=== PATIENT | female | born 1980 | race Caucasian/White ===

== ENCOUNTER 2019-05-19 13:39 | Outpatient (CLI) | payer BC, SELFPAY ==
[2019-05-19 14:45] LABS: Thyroid Stimulating Hormone 0.38 uIU/mL (0.36-3.74)
== END 2019-05-19 13:40 | disposition home or self-care (01) ==
PROVIDERS: PCP Nurse Practitioner Family; Visit Provider Nurse Practitioner Family
DX: E03.9 Hypothyroidism, unspecified (principal)
CPT/HCPCS: 36415; 84443

== ENCOUNTER 2019-11-09 11:17 | Outpatient (CLI) | payer BC, SELFPAY ==
[2019-11-09 11:34] LABS: Hematocrit 43.8 % (35.0-49.0); Hemoglobin 14.4 g/dL (12.0-15.0); Mean Corpuscular HGB Conc 32.9 g/dL (32.0-36.0); Mean Corpuscular Hemoglobin 30.6 pg (27.0-31.0); Mean Corpuscular Volume 93.2 fL (78.0-102.0); Platelet Count Result 228 K/mm3 (150-420); Red Cell Distribution Width 11.9 % (11.6-14.4); White Blood Count 8.5 K/mm3 (4.8-10.8)
[2019-11-09 12:38] LABS: Anion Gap 7 mmol/L (8-16); Blood Urea Nitrogen 11 mg/dL (7-18); Calcium 8.7 mg/dL (8.5-10.1); Carbon Dioxide 30 mmol/L (21-32); Chloride 103 mmol/L (98-108); Estimated Glomerular Filt Rate > 60; Glucose 98 mg/dL (70-99); Osmolality Calculated 289 mOsm/kg (285-295); Potassium 4.6 mmol/L (3.5-5.1); Sodium 140 mmol/L (136-145); Thyroid Stimulating Hormone 0.36 uIU/mL (0.36-3.74)
== END 2019-11-09 11:18 | disposition home or self-care (01) ==
LOC: CHSLAB 11:19
PROVIDERS: PCP Nurse Practitioner Family; Visit Provider Nurse Practitioner Family
DX: E03.9 Hypothyroidism, unspecified (principal); F41.1 Generalized anxiety disorder
CPT/HCPCS: 36415; 80048; 84443; 85027

== ENCOUNTER 2019-11-15 15:03 | Outpatient (CLI) | payer BC, SELFPAY ==
--- NOTE | ~2019-11-15 | MM_ITS ---
EXAMINATION: MM screening grey BI w rafia HISTORY: Screening TECHNIQUE: Craniocaudal and mediolateral oblique 3-D tomosynthesis images were obtained and synthetic 2-D images were generated. CAD analysis was submitted and interpreted. COMPARISON: No prior mammogram is available for comparison at this institution. BREAST PARENCHYMAL COMPOSITION: There are scattered areas of fibroglandular density. FINDINGS: There is no evidence of suspicious mass, calcification, or architectural distortion to sugg est malignancy in either breast. There has been no suspicious interval change. IMPRESSION: 1. No mammographic evidence of malignancy. 2. Recommend routine screening mammography in one year. BI-RADS Category 1: Negative Reviewed, dictated and finalized at location A.
== END 2019-11-15 15:04 | disposition home or self-care (01) ==
LOC: CHSIMG 15:04
PROVIDERS: PCP Nurse Practitioner Family; Visit Provider Obstetrics & Gynecology
DX: Z12.31 Encounter for screening mammogram for malignant neoplasm of breast (principal)
CPT/HCPCS: 77063; 77067

== ENCOUNTER 2020-08-15 10:04 | Outpatient (CLI) | payer BC, SELFPAY ==
[2020-08-15 10:55] LABS: Basophils Absolute Auto 0.04 K/mm3 (0.00-0.10); Basophils Percent Auto 0.5 % (0.0-1.0); Eosinophils Absolute Auto 0.07 K/mm3 (0.02-0.50); Eosinophils Percent Auto 0.9 % (1.0-6.0); Hematocrit 42.6 % (35.0-49.0); Hemoglobin 14.2 g/dL (12.0-15.0); Immature Granulocyte Absolute 0.03 K/mm3 (0.00-0.00); Immature Granulocyte Percent A 0.4 % (0.0-0.0); Lymphocytes Absolute Auto 2.51 K/mm3 (1.10-4.50); Lymphocytes Percent Auto 32.7 % (18.0-42.0); Mean Corpuscular HGB Conc 33.3 g/dL (32.0-36.0); Mean Corpuscular Hemoglobin 30.6 pg (27.0-31.0); Mean Corpuscular Volume 91.8 fL (78.0-102.0); Mean Platelet Volume 9.1 fl (9.2-11.8); Monocytes Absolute Auto 0.58 K/mm3 (0.10-0.90); Monocytes Percent Auto 7.6 % (2.0-11.0); Neutrophils Absolute Auto 4.4 K/mm3 (1.7-7.2); Neutrophils Percent Auto 57.9 % (50.0-70.0); Platelet Count Result 248 K/mm3 (150-420); Red Blood Count 4.64 M/mm3 (4.20-5.40); Red Cell Distribution Width 12.2 % (11.6-14.4); White Blood Count 7.7 K/mm3 (4.8-10.8)
[2020-08-15 10:58] LABS: Alanine Aminotransferase 26 U/L (14-59); Albumin Level 3.7 g/dL (3.4-5.0); Alkaline Phosphatase 105 U/L (46-116); Anion Gap 10 mmol/L (8-16); Aspartate Amino Transferase 14 U/L (15-37); Bilirubin,Total 0.5 mg/dL (0.00-1.00); Blood Urea Nitrogen 10 mg/dL (7-18); Calcium 8.9 mg/dL (8.5-10.1); Carbon Dioxide 28 mmol/L (21-32); Chloride 101 mmol/L (98-108); Estimated Glomerular Filt Rate > 60; Glucose 124 mg/dL (70-99); Osmolality Calculated 288 mOsm/kg (285-295); Potassium 4.3 mmol/L (3.5-5.1); Sodium 139 mmol/L (136-145); Total Protein 6.8 g/dL (6.4-8.2)
[2020-08-15 11:22] LABS: Thyroid Stimulating Hormone Reflex 0.19 u/IU/mL (0.36-3.74)
[2020-08-15 11:23] LABS: Free T4 Free Thyroxine Reflex 1.43 ng/dL (0.76-1.46)
== END 2020-08-15 10:05 | disposition home or self-care (01) ==
LOC: CHSLAB 10:06
PROVIDERS: PCP Family Medicine; Visit Provider Family Medicine
DX: E03.9 Hypothyroidism, unspecified (principal)
CPT/HCPCS: 36415; 80053; 84439; 84443; 85025

== ENCOUNTER → 2020-11-09 10:49 | Outpatient (CLI) | payer BC, SELFPAY ==
--- NOTE | ~2020-11-09 | MR_ITS ---
EXAMINATION: MR knee RT wo con DATE: 11/09/2020 12:24 INDICATION: Medial right knee pain TECHNIQUE: Magnetic resonance imaging (MRI) of the right knee was performed without intravenous contr ast. Sequences included coronal PD-weighted FSE, coronal PD-weighted FS FSE, sagittal T2-weighted FS E, sagittal PD-weighted FS FSE and axial PD weighted fat saturated FSE. COMPARISON: None. FINDINGS: Medial compartment: Medial meniscus is normal. Small focus of partial-thickness chondral fissuring without degenerative s ubchondral changes along the lateral margin of the anterior weightbearing medial femoral condyle. Rem aining cartilage is normal. Lateral compartment: Lateral meniscus is normal. Mild partial-thickness chondral fissuring along the posterior medial aspe ct of the lateral tibial plateau. Patellofemoral compartment: Deep chondral ulceration/fissuring extending across the patellar apical ridge and medial facet juncti on of the mid to lower thirds of the couple tiny foci of increased subarticular signal. Additional sm all region of partial-thickness chondral fissuring with minimal underlying cortical irregularity at t he inferior aspect of the medial trochlea. Ligaments and tendons: Complete anterior cruciate ligament tear. The posterior cruciate ligament is normal. The medial colla teral ligament and fibular collateral ligament complex are normal. The extensor mechanism is normal. The visualized medial and lateral hamstring tendons as well as the iliotibial band are normal. Fluid: Small to moderate-sized right knee joint effusion at the suprapatellar pouch. No loose osteochondral bodies identified. Osseous/other: Mild marrow edema without associated fracture line extending along the posterior rim of the lateral p atellar facet suggesting bone contusion related to anterior tibial subluxation injury noted bone cont usion, fracture or pathologic marrow replacing process. IMPRESSION: 1. Complete tear of the anterior cruciate ligament with mild bone contusion along the posterior rim o f the lateral tibial plateau likely related to anterior tibial subluxation. 2. Mild tricompartmental osteoarthritis with small regions of moderate grade chondromalacia in the me dial and lateral compartments and moderate and high-grade chondromalacia in the patellofemoral compar tment. 3. Small to moderate-sized right knee joint effusion. Reviewed, dictated and finalized at location A. IMPRESSION: 1. Complete tear of the anterior cruciate ligament with mild bone contusion karlee ng the posterior rim of the lateral tibial plateau likely related to anterior t ibial subluxation. 2. Mild tricompartmental osteoarthritis with small regions of moderate grade ch ondromalacia in the medial and lateral compartments and moderate and high-grade chondromalacia in the patellofemoral compartment. 3. Small to moderate-sized right knee joint effusion.
== END ==
PROVIDERS: Visit Provider Orthopaedic Surgery
DX: M25.461 Effusion, right knee (principal); M17.11 Unilateral primary osteoarthritis, right knee; S83.511A Sprain of anterior cruciate ligament of right knee, initial encounter; X58.XXXA Exposure to other specified factors, initial encounter
CPT/HCPCS: 73721

== ENCOUNTER 2020-11-19 07:58 | Outpatient (CLI) | payer SELFPAY ==
--- NOTE | ~2020-11-19 | MM_ITS ---
EXAMINATION: MM screening grey BI w rafia HISTORY: Screening mammogram TECHNIQUE: Craniocaudal and mediolateral oblique 3-D tomosynthesis images were obtained and synthetic 2-D images were generated. CAD analysis was submitted and interpreted. COMPARISON: 11/15/2019 bilateral digital screening mammogram BREAST PARENCHYMAL COMPOSITION: There are scattered areas of fibroglandular density. FINDINGS: There is no evidence of suspicious mass, calcification, or architectural distortion to sugg est malignancy in either breast. There has been no suspicious interval change. IMPRESSION: 1. No mammographic evidence of malignancy. 2. Recommend routine screening mammography in one year. BI-RADS Category 1: Negative Reviewed, dictated and finalized at location A.
== END 2020-11-19 07:59 | disposition home or self-care (01) ==
LOC: CHSIMG 07:59
PROVIDERS: PCP Family Medicine; Visit Provider Obstetrics & Gynecology
DX: Z12.31 Encounter for screening mammogram for malignant neoplasm of breast (principal)
CPT/HCPCS: 77063; 77067

== ENCOUNTER 2020-11-20 15:45 | Outpatient (RCR) | payer BC, OTHER, SELFPAY ==
--- NOTE | 2020-12-10 10:22 | PTOPEVAL ---
Thank you for referring Stephanie Aviles to [facility].? The patient is scheduled to be seen for therapy? ____x/week for ___ weeks. Please review, sign, date and return this plan of care YOON. I agree with and certify that the following plan of care is medically necessary. Referring Physician Date Admitting Provider: Attending Provider: Harish Donohue MD Referring Provider: *PT Outpatient Evaluation Start: 11/20/20 16:03 Freq: Status: Active Protocol: Document 11/20/20 16:00 [facility] (Rec: 11/20/20 17:53 [facility] [id number]) Therapy Assessment Status Assessment Status Assessment Status Evaluation Evaluation Information Problem Diagnosis R knee pain, ACL tear, tricompartmental arthritis Onset 10/20/20 Additional Evaluation Detail LEFS = 61% functionally declined Subjective Information patient reports she was Query Text:As Reported By Patient/ playing family baseball game Family and twisted her knee both in the field and batting. she reports she felt and heard a pop in the R knee. she reports she had an MRI of the R knee that reveals a complete tear of the ACL. she reports her R knee feels unsteady with standing, walking, and stair ambulation. she reports sitting will cause the knee to lock up. Prior Level of Function Comments Additional Prior Level of Function prior to injury, no issues Comments with the R knee. Pain Assessment Timing of Pain Assessment Timing of Pain Assessment Assessment Pain Scale Pain Scale Used Numeric (1 - 10) Self Report Pain Assessment Right Knee(s) Reported Pain Level 0 Greatest Pain Intensity 10 Pain Score Pain Score 0: Self Report Interventions Used Interventions Used By Clinicians Activity or ADL's,Compression Pump,Education,Exercise,Ice, Rest Lower Extremity Range of Motion Knee Range of Motion Right Knee Flexion Range of Motion - Active 112 Knee Extension Range of Motion - Active -10 Query Text: Left Knee Flexion Range of Motion - Active 130 Knee Extension Range of Motion - Active 0 Query Text: Lower Extremity Muscle Strength Testing Hip Strength Right Hip Flexion Strength 3- Fair - Hip Strength Comments extension lag noted with SLR Left Hip Flexion Strength 4+
--- NOTE | 2020-12-16 16:31 | PTOPEVAL ---
Thank you for referring Stephanie Aviles to [facility] [place] The patient is scheduled to be seen for therapy? ____x/week for ___ weeks. Please review, sign, date and return this plan of care YOON. I agree with and certify that the following plan of care is medically necessary. Referring Physician Date Admitting Provider: Attending Provider: Harish Donohue MD Referring Provider: *PT Outpatient Evaluation Start: 11/20/20 16:03 Freq: Status: Active Protocol: Document 12/16/20 15:38 [facility] (Rec: 12/16/20 16:29 [facility] [id number]) Therapy Assessment Status Assessment Status Assessment Status Discharge Evaluation Information Problem Diagnosis R knee pain, ACL tear, tricomparmental arthritis Subjective Information Patient reports that her Query Text:As Reported By Patient/ extension is better but she Family still has difficulty with walking, steps, and squatting. She states she goes to the doctor tomorrow to decide what the next steps are. She states she still has the locking up sensation. Pain Assessment Timing of Pain Assessment Timing of Pain Assessment Assessment Pain Scale Pain Scale Used Numeric (1 - 10) Self Report Pain Assessment Right Knee(s) Reported Pain Level 3 Greatest Pain Intensity 10 Pain Score Pain Score 3: Self Report Interventions Used Interventions Used By Clinicians Activity or ADL's,Exercise Lower Extremity Range of Motion Knee Range of Motion Right Knee Flexion Range of Motion - Active 119 Knee Extension Range of Motion - Active -2 Query Text: Left Knee Flexion Range of Motion - Active 130 Knee Extension Range of Motion - Active 0 Query Text: Lower Extremity Muscle Strength Testing Hip Strength Right Hip Flexion Strength 3- Fair - Hip Strength Comments Patient continues to have a slight extension lag with SLR Left Hip Flexion Strength 4+ Good + Knee Strength Right Knee Flexion Strength 3+ Fair + Knee Extension Strength 3 Fair Knee Strength Comments increased pain Left Knee Flexion Strength 5 Normal Knee Extension Strength 5 Normal Ankle Strength Right Ankle Dorsiflexion Strength 4- Good - Left Ankle Dorsiflexion Strength 5 Normal Muscle Length Testing Muscle Length Testing Left Hamstring Length 15 Query Text:(90 - 90 Position) Right Hamstring Length 28 Query Text:(90 - 90 Position) Palpation Assessment Palpation Pal
--- NOTE | 2021-02-04 14:56 | PCPTNOTE ---
02/04/21 - patient has not been to therapy in over a month. as of this date, she will be dc'd from skilled PT services and all progress towards goals will be taken from her most recent evaluation/note. ELMO
== END 2020-12-16 09:01 | disposition home or self-care (01) ==
LOC: CHSPT 15:45
PROVIDERS: Visit Provider Orthopaedic Surgery
DX: S83.241A Other tear of medial meniscus, current injury, right knee, initial encounter (principal)
CPT/HCPCS: 97016; 97110; 97161

== ENCOUNTER 2021-02-13 00:14 | Day surgery (SDC) | payer OTHER, SELFPAY ==
[2021-02-03 11:25] VITALS: BMI 28.3
--- NOTE | 2021-02-03 11:33 | PC.NURSE ---
Report to the Outpatient Waiting Room, entrance under the green pavilion located off [facility], at time 0600 on date 02/13/21. OR Time: 0800. - You and your visitor will be asked a series of questions to screen for COVID 19 for your protection. - A mask is required within the hospital. - Only one visitor is allowed at this time. Patient visitors will be guided where to wait when not with patient. Preoperative COVID Testing Requirements: No COVID Test needed if: (proof is required; if not received patient will have Rapid Test prior to entry) - Patient has received COVID Vaccine at least 14 days prior to procedure date or - Patient has positive COVID test result within last 90 days of surgery date. COVID Test needed if above criteria is not met If not COVID vaccinated a COVID test must be conducted within 72 hours of surgery and patient is asked to isolate self from time of testing until procedure. You will go to the [facility] for your COVID testing. The [facility] is located at the corner of [address] [facility]. You will only be called if COVID results are positive and your surgeon may reschedule your elective surgery date. Patients may have clear liquids (water, carbonated beverages, clear teas, apple juice) until 3 hours prior to surgery with a maximum of 20 ounces. - No food from midnight until time of surgery - Infants may have breast milk until 4 hours before surgery, formula 6 hours prior to surgery. - Children will be allowed to drink immediately following surgery. If applicable, please bring a bottle or sippy cup to assist with drinking. Juice, water, soda, and popsicles are readily available. For infants on formula, please bring formula the day of surgery. Pacifiers are allowed. Take the following medications with a SIP of water the morning of surgery: CITALOPRAM, LEVOTHYROXINE Medications to discontinue per physician: VITAMINS/SUPPLEMENTS Date to take last dose: 02/09/21 Please no make-up, nail occitan, hairspray, perfume, deodorant, or body powder the day of surgery. No jewelry (including any body piercings) or valuables the day of surgery, leave them at home. Please take a shower or bath the night before, or the morning of, surgery with an antibacterial soap. Wear comfortable, loose fitting clothing. Children are encouraged to wear pajamas. - Jewelry must be removed prior to entering the operating room. Rings and piercings that are not removed may be cut off. - The hospital will not accept responsibility for valuables. - Please leave all valuables, including medications, at home the day of surgery. If you are going home after surgery, a licensed freight delivery driver must drive you home. - NO public transportation without another adult. - We recommend that an adult stay with you for 24 hours following discharge. - We also recommend that you do not drive, make important decision, drink alcoholic beverages, or take any drugs that were not prescribed by your health care provider for at least 24 hours after your discharge time. For Pediatric surgeries, we recommend two adults accompany the child home (only one inside the building at this time). Follow any additional instructions given to you from your surgeon. Telephone instructions given to THAIS RAYMOND and asked if any additional questions and then verbalized understanding. Patient advised to call surgeon office or pre surgery nurse liaison [phone] if any additional questions.
--- NOTE | 2021-02-12 15:10 | PM.IMHP ---
H&P: HPI History of Present Illness Date/Time: 02/12/21 15:10 Chief Complaint: Right knee pain Narrative: 4 months status post right knee injury. Continued locking and giving out of the knee. Pain with weight-bearing and daily activity. Unrelieved with physical therapy but improved after therapy. MRI shows medial meniscus tear and ACL tear. Review of Systems Constitutional: Constitutional: Denies fever(s) Eyes: Eyes: Denies blurry vision ENT: Reports Normal hearing present Cardiovascular: Cardiovascular: Denies chest pain and Denies dyspnea Respiratory: Respiratory: Denies dyspnea and Denies wheezing Gastrointestinal: Gastrointestinal: Denies abdominal pain Genitourinary: Genitourinary: Denies urinary urgency Musculoskeletal: Musculoskeletal: Reports as per HPI and Denies numbness Integumentary/Breasts: Skin/Breast: Denies changing lesions and Denies sores Neurologic: Reports Normal hearing present, Denies behavioral changes, Denies confusion, Denies numbness and Denies convulsions Psychiatric: Psychiatric: Denies behavioral changes, Denies confusion and Denies hallucinations Endocrine: Endocrine: Denies heat intolerance Hematologic/Lymphatic: Hematologic/Lymphatic: Denies easy bleeding Allergic/Immunologic: Allergic/Immunologic: Denies wheezing PMFSH Past Medical History Medical History Acute medial meniscus tear of right knee Anterior cruciate ligament complete tear Generalized anxiety disorder Hypothyroidism Nicotine addiction Surgical History Surgical History History of hysterectomy History of thyroidectomy Family History Family History Other Cerebrovascular accident Diabetes mellitus Family history of alcoholism Family history of arthritis Family history of heart disease in male family member before age 55 Family history of lung disease Family history of malignant neoplasm Hypertension Social History Social History Smoking packs per day: 0.5 Smoking cigarettes per day: 10.0 Years smoked: 26 Smoking pack-years: 13.00 Smoking status: Current every day smoker Tobacco type: cigarettes Alcohol intake: current Drinks per week: 3 Substance use: never Substance use type: does not use Living arrangements: with family Additional living arrangements comments: has 1 child Additional occupation/education comments: teacher Gender identity (if verbalized by the patient): Female Sexual Orientation (if Verbalized by the Patient): Straight or Heterosexual Spiritual care concerns: No Meds Home Medications and Allergies Home Medications Medication Instructions Recorded Confirmed Type aspirin 81 mg tablet,delayed 81 mg PO DAILY #90 tablet 10/30/19 02/03/21 Rx release multivitamin 1 tablet PO DAILY 10/30/19 02/03/21 History biotin 10,000 mcg capsule 10,000 mcg PO DAILY cap 07/03/20 02/03/21 History levothyroxine 125 mcg PO DAILY 02/03/21 02/03/21 History citalopram 40 mg tablet 40 mg PO DAILY #90 tablet 02/05/21 Rx Allergies Allergy/AdvReac Type Severity Reaction Status Date / Time erythromycin base Allergy Intermediate Gastrointestinal Verified 02/03/21 11:23 Upset Penicillins Allergy Intermediate Hives Verified 02/03/21 11:23 Exam Const: General: healthy appearing; No in distress or confusion Orientation/consciousness: oriented to person, oriented to place, oriented to time and No confusion HENMT: Head: normal to inspection, normocephalic and atraumatic Eyes: Conjunctivae: conjunctivae normal Sclera: sclerae normal Neck: Neck: supple and nontender Resp: Effort & Inspection: normal respiratory effort and no audible wheezes Cardio: Rate: regular rate Rhythm: regular rhythm Skin: General skin exam:
[2021-02-13] VITALS (7 sets, daily range): BP systolic 108–127; BP diastolic 67–81; PULSE 68–81; RESP 10–20; TEMP 36.4; O2SAT 98–100
--- NOTE | 2021-02-13 06:39 | WPDANESEPPF ---
Anes - Initial Pre Proc Eval Procedure: Operation Date: 02/13/21 08:00 Proposed Procedures p Right Knee Arthroscopy, Debridement of Meniscus, Synovectomy, Chondroplasty, Proceed As Indicated - Harish Donohue MD Date/Time: 02/13/21 06:39 Surgeon: Harish Donohue MD Pre Op Diagnosis: Right Knee Pain, Rt Meniscus Tear Patient Data Age: 40 Gender: F Height: 1.8 m Weight: 92 kg Allergies Allergy/AdvReac Type Severity Reaction Status Date / Time erythromycin base Allergy Intermediate Gastrointestinal Verified 02/03/21 11:23 Upset Penicillins Allergy Intermediate Hives Verified 02/03/21 11:23 Home Medications Medication Instructions Recorded Confirmed Type aspirin 81 mg tablet,delayed 81 mg PO DAILY #90 tablet 10/30/19 02/03/21 Rx release multivitamin 1 tablet PO DAILY 10/30/19 02/03/21 History biotin 10,000 mcg capsule 10,000 mcg PO DAILY cap 07/03/20 02/03/21 History levothyroxine 125 mcg PO DAILY 02/03/21 02/03/21 History citalopram 40 mg tablet 40 mg PO DAILY #90 tablet 02/05/21 Rx Patient hx anesthesia problems: none Family hx anesthesia problems: post op nausea/vomiting Results Review: All pre-operative results and documents have been reviewed as part of the pre-operative evaluation. [facility] Past Medical History Medical History Acute medial meniscus tear of right knee Anterior cruciate ligament complete tear Generalized anxiety disorder Hypothyroidism Nicotine addiction Surgical History Surgical History History of hysterectomy History of thyroidectomy Family History Family History Other Cerebrovascular accident Diabetes mellitus Family history of alcoholism Family history of arthritis Family history of heart disease in male family member before age 55 Family history of lung disease Family history of malignant neoplasm Hypertension Social History Social History Smoking packs per day: 0.5 Smoking cigarettes per day: 10.0 Years smoked: 26 Smoking pack-years: 13.00 Smoking status: Current every day smoker Tobacco type: cigarettes Alcohol intake: current Drinks per week: 3 Substance use: never Substance use type: does not use Living arrangements: with family Additional living arrangements comments: has 1 child Additional occupation/education comments: teacher Gender identity (if verbalized by the patient): Female Sexual Orientation (if Verbalized by the Patient): Straight or Heterosexual Spiritual care concerns: No Anes - Eval Final PreProcedure Day of Procedure 02/13/21 06:39 Patient weight: overweight Heart: regular rate and rhythm Lungs: decreased breath sounds Airway: Mallampati scale class 1 Neurological: alert and oriented Last oral intake: >/= 8 hours ASA classification: II Emergent: no Anesthetic plan: proceed Anesthesia type and monitoring: general LMA and standard monitoring Results Review: All pre-operative results and documents have been reviewed as part of the pre-operative evaluation. Informed Consent: The patient's anesthetic plan and its attendant risks and benefits were discussed with the patient/family/POA. Questions were solicited and answers provided to the satisfaction of the patient/family/POA.
[2021-02-13] MEDS: LACTATED RINGERS 1,000 ML 30 ML IV CONT (06:43)
--- NOTE | 2021-02-13 06:46 | WPDHPUPDATE1 ---
History and Physical Update Update Date/Time: 02/13/21 06:46 History and Physical has been reviewed, including an updated exam of the patient. There are NO changes in the patient's condition. Risks, benefits, and alternatives have been discussed and questions answered. Patient agrees to proceed with procedure.
[2021-02-13] MEDS: ACETAMINOPHEN 500 MG TABLET 1000 MG PO (07:07)
[2021-02-13] MEDS: KETOROLAC 15 MG/ML VIAL (*BKC) IV PUSH (07:07)
[2021-02-13] MEDS: ceFAZolin 2 GM/D5W 50 ML 2 GM/50 ML BAG IVPB (08:08)
[2021-02-13] MEDS: BUPIVACAINE HCL 0.25% PF 30 ML VIAL INFILTRATE (08:36)
[2021-02-13] MEDS: LIDO 1%/EPINEPHRINE 1:100,000 50 ML VIAL 30 ML INFILTRATE (08:37)
--- NOTE | 2021-02-13 09:19 | W.PM.PROC2 ---
Procedure Note - Detailed Date of Procedure 02/13/21 Pre-op Diagnosis Right Knee Pain, Rt Meniscus Tear, ACL tear Post-op Diagnosis same Procedure Performed Right knee arthroscopy with partial medial meniscectomy, synovectomy, chondroplasty Surgeon Harish Donohue MD Anesthesia general Indications 40-year-old woman with injury to right knee 3.5 months ago. MRI shows ACL tear and knee effusion. Questionable irregularity of the medial meniscus. Patient with problems with the knee with locking and catching as well as continued pain and swelling. Presents for operative treatment however has declined treatment for the ACL. Plan is for debridement, synovectomy, chondroplasty and possible loose body removal. Findings Loose chondral piece 1.5 cm in the intercondylar notch. Grade 2 chondromalacia patella in the midportion. Grade 2 chondromalacia femoral trochlea. Posterior horn medial meniscus tear in the inner 1/3 edge. Complete tear from the femoral attachment of the ACL. PCL intact. Lateral meniscus intact. Grade 2 chondromalacia of the medial femoral condyle midportion. Description of Procedure Informed consent given by patient. Operative extremity marked in preoperative holding area. Patient received intravenous antibiotics. Patient brought to operating room and underwent general anesthetic by anesthesia team. Positioned supine on operating room table. Right leg placed into a posterior thigh leg morales. Foot of the table dropped to 90? and left leg padded out of the field. Time-out performed confirming patient, site of surgery and plan. Right knee prepped and draped in usual sterile surgical fashion using ChloraPrep skin solution. Standard arthroscopic portals made by using a 11 blade knife for the anterior lateral portal 1st. Capsule penetrated bluntly. Camera and inflow started. The operative findings noted. Intra-articular visualization used to position the anterior medial portal using 22 gauge spinal needle. A 11 blade knife used for the skin and blunt penetration of the capsule. 4.7 millimeter arthroscopic shaver introduced and partial medial meniscectomy of the loose and torn portion performed. Edge of meniscus completed with arthroscopic Wand. Arthroscopic 1 used to debride the torn edge of the anterior cruciate ligament. Remaining tissue stable. Arthroscopic Wand used to perform chondroplasty of the patellofemoral articulation and the medial femoral condyle. Shaver reintroduced and a synovectomy performed of the anterior fat pad and extensive synovium as well as medial and lateral plica. Bleeding points coagulated with Wand. Knee inspected, one loose chondral piece noted intracondylar notch and removed. 1 liter of irrigant infused and suction out. Arthroscopic cannulas removed. Skin closed with 4 nylon interrupted suture. Local anesthetic with 0.25% Marcaine. Sterile dressing applied. Patient awoken from anesthesia, extubated and taken to recovery room in stable condition. All sponge needle and instrument counts correct at the end of the case. Implants None Estimated Blood Loss -5.0 Tourniquet Time 0 Drains No Packing No Pathology none sent Complications None Condition stable Disposition PACU
== END 2021-02-13 11:00 | disposition home or self-care (01) ==
PROVIDERS: PCP Family Medicine; Visit Provider Orthopaedic Surgery
PROC: (CPT 29870; principal; 2021-02-13 08:00)
DX: S83.241A Other tear of medial meniscus, current injury, right knee, initial encounter (principal); S83.511A Sprain of anterior cruciate ligament of right knee, initial encounter; X58.XXXA Exposure to other specified factors, initial encounter; M22.41 Chondromalacia patellae, right knee; M65.861 Other synovitis and tenosynovitis, right lower leg; E03.9 Hypothyroidism, unspecified; F41.1 Generalized anxiety disorder; Z79.82 Long term (current) use of aspirin; F17.210 Nicotine dependence, cigarettes, uncomplicated
CPT/HCPCS: 29881; 29876; A9270; J0690; J1100; J1885; J2250; J2270; J2405; J2704; J7120